=== PATIENT | male | born 2000 | race Two or more races ===

== ENCOUNTER 2023-01-15 04:21 | Emergency (ER) | payer OTHER ==
[~2023-01-15] VITALS: Ht 170.2 cm; Wt 63.5 kg
[2023-01-15] MEDS ORDERED: ZOFRAN8 MG PO (10:07)
[2023-01-15] MEDS ORDERED: PEPCID AC20 MG PO (10:07)
== END 2023-01-15 10:57 | disposition home or self-care (01) ==
LOC: ER 04:21
DX: R10.13 Epigastric pain (principal); R42 Dizziness and giddiness

== ENCOUNTER 2023-05-05 19:25 | Emergency (ER) | payer OTHER ==
[~2023-05-05] VITALS: Ht 165.1 cm; Wt 59.0 kg
[~2023-05-05 19:25] MED LIST: PEPCID AC20 MG PO; ZOFRAN8 MG PO
[2023-05-05 23:22] LABS: HEMATOCRIT 44.7 % (39.0-48.0); HEMOGLOBIN 15.2 g/dL (13-16.00); MEAN CORPUSCULAR HGB CONC 34.1 g/dl (32.0-36.0); PLATELET COUNT 212 K/uL (150-450); RED BLOOD COUNT 4.91 M/uL (4.00-6.00); RED CELL DISTRIBUTION WIDTH 12.8 % (11.5-14.5)
[2023-05-05 23:37] LABS: URINE APPEARANCE Clear; URINE BILIRRUBIN Negative (NEGATIVE); URINE BLOOD Negative; URINE COLOR Yellow; URINE GLUCOSE Negative (NEGATIVE); URINE LEUKOCYTE Negative; URINE NITRATE Negative; URINE PROTEIN Negative (NEGATIVE); URINE UROBILINOGEN 0.2 E.U./dl
[2023-05-05 23:41] LABS: INR 1.01; PARTIAL THROMBOPLASTIN TIME 29.1 SECONDS (22.0-34.0); PROTHROMBIN TIME 10.6 SECONDS (9.0-11.5)
[2023-05-05 23:45] LABS: CALCIUM 9.3 mg/dL (8.5-10.1); CREATININE SERUM 0.98 mg/dL (0.70-1.30); GFR 94.78; POTASSIUM 4.14 mEq/L (3.5-5.1)
[2023-05-05 23:49] LABS: URINE BACTERIA 1.2 uL (0.0-1933); URINE EPITHELIAL CELLS 0.1 uL (0.0-38.8); URINE RBC 1.2 uL (0.0-20.8); URINE WBC 0.4 uL (0.0-23.2)
[2023-05-06] MEDS ORDERED: ANTIVERT25 M2 PO (00:16)
[2023-05-06 00:33] LABS: COCAINE NEGATIVE (NEGATIVE); METHADONE NEGATIVE (NEGATIVE); OPIATES NEGATIVE (NEGATIVE); THC ( Cannabinoids) NEGATIVE (NEGATIVE)
== END 2023-05-06 00:27 | disposition home or self-care (01) ==
LOC: ER 19:25
PROVIDERS: General Practice
DX: R42 Dizziness and giddiness (principal); K52.9 Noninfective gastroenteritis and colitis, unspecified

== ENCOUNTER 2023-05-28 00:13 | Emergency (ER) | payer OTHER ==
[~2023-05-28] VITALS: Ht 170.2 cm; Wt 59.0 kg
[~2023-05-28 00:13] MED LIST changes: +ANTIVERT25 M2 PO
[2023-05-28 02:56] LABS: HEMATOCRIT 45.5 % (39.0-48.0); HEMOGLOBIN 15.7 g/dL (13-16.00); MEAN CELL VOLUME 89.8 fL (80.0-100.00); MEAN CORPUSCULAR HGB CONC 34.5 g/dl (32.0-36.0); PLATELET COUNT 226 K/uL (150-450); RED BLOOD COUNT 5.07 M/uL (4.00-6.00)
[2023-05-28 03:09] LABS: ALBUMIN 3.9 gm/dL (3.4-5.0); BILIRUBIN TOTAL 1.54 mg/dL (0.3-1.2); CALCIUM 9.4 mg/dL (8.5-10.1); CREATININE SERUM 0.87 mg/dL (0.70-1.30); GFR 108.74; GLOBULINA 3.5 G/DL (2.4-3.5); POTASSIUM 3.71 mEq/L (3.5-5.1); TOTAL PROTEIN 7.4 gm/dL (6.4-8.2)
== END 2023-05-28 05:32 | disposition home or self-care (01) ==
LOC: ER 00:13
PROVIDERS: General Practice
DX: R10.9 Unspecified abdominal pain (principal)